=== PATIENT | female | born 1935 | race Caucasian/White ===

== ENCOUNTER 2016-10-09 19:46 | Emergency (ER) | payer MEDICARE, OTHER ==
[2016-10-09] MEDS ORDERED: LIDOCAINE 0.5%/EPINEPHRINE INJ 50 ML VIAL INJ ONE (20:52)
--- NOTE | 2016-10-09 20:54 | ER Document Report ---
ED Fall - General Chief Complaint: Fall with injury Stated Complaint: FALL/MOUTH PAIN Time Seen by Provider: 10/09/16 20:45 Notes: Patient is an 81-year-old female comes emergency department for chief complaint of fall, she states she tripped and she hit her face on pavement. She reports an abrasion and injury to her nose with slight bleeding from the nose, she also reports feeling like her to front teeth have been smashed in. She also has an abrasion on her left knee. She denies a headache, passing out, vomiting, visual changes, neck pain, focal numbness or weakness. She takes aspirin but no other anticoagulation. She is up-to-date on her tetanus. TRAVEL OUTSIDE OF THE [place] IN LAST 30 DAYS: No - Related data Allergies/Adverse Reactions: No Known Allergies Allergy (Unverified 06/06/15 13:05) Past Medical History - General Information source: Patient - Social History Smoking Status: Never Smoker Frequency of alcohol use: None Drug Abuse: None Lives with: Family Family History: Arthritis, CAD, DM, Hyperlipidemia, Hypertension, Malignancy, Thyroid Disfunction - Past Medical History Cardiac Medical History: Reports: Hx Hypercholesterolemia, Hx Hypertension Pulmonary Medical History: Reports: Hx Bronchitis, Hx Pneumonia Neurological Medical History: Reports: Hx Seizures - as a child Endocrine Medical History: Reports: Hx Diabetes Mellitus Type 2 Renal/ Medical History: Denies: Hx Peritoneal Dialysis Malignancy Medical History: Reports: Hx Skin Cancer GI Medical History: Reports: Hx Gastroesophageal Reflux Disease Musculoskeltal Medical History: Reports Hx Arthritis, Reports Hx Musculoskeletal Deformity, Reports Hx Musculoskeletal Trauma Past Surgical History: Reports: Hx Breast Surgery - bx bilaterally neg, Hx Orthopedic Surgery - bilateral knee replacements, Hx Tonsillectomy - Immunizations Immunizations up to date: Yes Hx Diphtheria, Pertussis, Tetanus Vaccination: Yes Review of Systems - Review of Systems Constitutional: No symptoms reported EENT: See HPI Cardiovascular: No symptoms reported Respiratory: No symptoms reported Gastrointestinal: No symptoms reported Genitourinary: No symptoms reported Female Genitourinary: No symptoms reported Musculoskeletal: No symptoms reported Skin: See HPI Hematologic/Lymphatic: No symptoms reported Neurological/Psychological: See HPI Physical Exam - Vital signs Vitals: Temp Pulse Resp BP Pulse Ox 98.4 F 88 16 182/100 H 96 10/09/16 20:05 10/09/16 20:05 10/09/16 20:05 10/09/16 20:05 10/09/16 20:05 Interpretation: Normal - General General appearance: Appears well, Alert In distress: None - HEENT Head: Normocephalic, Atraumatic Eyes: Normal Conjunctiva: Normal Extraocular movements intact: Yes Eyelashes: Normal Pupils: PERRL Ears: Normal External canal: Normal Tympanic membrane: Normal Sinus: Normal Nasal: Other - There is a small bruise over the nasal bridge, there is dried epistaxis at the exit of the right nasal passage with a tiny superficial laceration which has already approximated and is difficult to pull apart. There is no septal hematoma. No other abnormality noted. Mouth/Lips: Other - 2 small 0.5 cm lacerations on the underneath aspect of the upper lip Mucous membranes: Normal Teeth diagram: 1 - Minimal posterior displacement, no impaction, no bleeding, no other abnormality noted of the teeth or gingiva Pharynx: Normal Neck: Normal - Respiratory Respiratory status: No respiratory distress Chest status: Nontender Breath sounds: Normal Chest palpation: Normal - Cardiovascular Rhythm: Regular Heart sounds: Normal auscultation Murmur: No - Abdominal Inspection: Normal Distension: No distension Bowel sounds: Normal Tenderness: Nontender Organomegaly: No organomegaly - Back Back: Normal, Nontender - Extremities General upper extremity: Normal inspection, Nontender, Normal color, Normal ROM , Normal temperature General lower extremity: Normal inspection, Nontender, Normal color, Normal ROM , Normal temperature, Normal weight bearing. No: Luciana's sign - Neurological Neuro grossly intact: Yes Cognition: Normal Orientation: AAOx4 [place] Coma Scale Eye Opening: Spontaneous [place] Coma Scale Verbal: Oriented [place] Coma Scale Motor: Obeys Commands Christine Coma Scale Total: 15 Speech: Normal Motor strength normal: LUE, RUE, LLE, RLE Sensory: Normal - Psychological Associated symptoms: Normal affect, Normal mood - Skin Skin Temperature: Warm Skin Moisture: Dry Skin Color: Normal Course - Re-evaluation Re-evalutation: Patient is not on a blood thinner, she is alert and well-appearing, no concerning neurological symptoms reported, neurological exam is normal, no headache. Patient is very youthful in appearance. She declines any pain medication Patient with a dried epistaxis which has resolved. No posterior pharynx bleeding. 2 small lacerations underneath the upper lip which were repaired, patient with minimal displacement of the front 2 teeth with no impaction into the gum or bleeding of the gum, no concerning acute abnormalities. Imaging of the face and knee show no acute abnormalities. Discussed with patient and sister in detail, we also discussed head injury precautions although no significant injury is noted. They state understanding and agreement. - Vital Signs Vital signs: Temp Pulse Resp BP Pulse Ox 98.0 F 81 18 177/86 H 97 10/09/16 22:39 10/09/16 22:39 10/09/16 22:39 10/09/16 22:39 10/09/16 22:39 Procedures - Laceration/Wound Repair inner upper lip #1 Wound length (cm): 0.5 Wound's Depth, Shape: Irregular Laceration pre-procedure: Sterile PPE donned, Sterile drapes applied, Shur- Clens applied Anesthetic type: 1% Lidocaine Volume Anesthetic (mLs): 1 Wound explored: Clean, No foreign body removed Irrigated w/ Saline (mLs): 20 Wound Repaired With: Sutures Suture Size/Type: 5:0, Vicryl Number of Sutures: 2 Layer Closure?: No Post-procedure NV exam normal: Yes Complications: No inner upper lip #2 Wound length (cm): 0.5 Wound's Depth, Shape: Irregular Laceration pre-procedure: Sterile PPE donned, Sterile drapes applied, Shur- Clens applied Anesthetic type: 1% Lidocaine Volume Anesthetic (mLs): 1 Wound explored: Clean, No foreign body removed Irrigated w/ Saline (mLs): 20 Wound Repaired With: Sutures Suture Size/Type: 5:0, Vicryl Number of Sutures: 2 Layer Closure?: No Post-procedure NV exam normal: Yes Complications: No Discharge - Discharge Clinical Impression: Epistaxis Fall Qualifiers: Encounter type: initial encounter Qualified Code(s): W19.XXXA - Unspecified fall, initial encounter Lip laceration Qualifiers: Encounter type: initial encounter Qualified Code(s): S01.511A - Laceration without foreign body of lip, initial encounter Dental injury Qualifiers: Encounter type: initial encounter Qualified Code(s): S09.93XA - Unspecified injury of face, initial encounter Condition: Stable Disposition: HOME, SELF-CARE Additional Instructions: Imaging shows no fracture or new abnormality. Recommend placing ice on both your upper lip and your knee, take Tylenol for pain. The sutures should dissolve on their own. Follow-up closely with a dentist for evaluation and management of dental injury. I recommend topical antibiotic on a Q-tip to be placed in right nasal passage. Keep area clean. Follow head injury precautions as listed below. Return to emergency department for any concerning symptoms. Head Injury Precautions At this point, there is no evidence that your head injury is serious. Observation is necessary, however. Take only clear liquids for the first few hours, unless told otherwise by the doctor. If no pain medication was prescribed, you may take acetaminophen according to the directions on the bottle. Do not take any medication that may alter your level of alertness (unless you've discussed it with the doctor first) . Limit activity for the first 24 hours. Bed rest is best. During the first 24 hours, check to see approximately every two to three hours that the patient is easily arousable, responds normally, and can perform common tasks such as walking without difficulty. Contact your doctor or go to the hospital if any of the following things occur: Persistent vomiting, difficulty in arousing the patient, worsening or continued headache, or failure to improve as expected. Head injuries can cause symptoms that persist for a few days or even a few weeks. Forms: Elevated Blood Pressure Referrals: XIOMARA SANCHEZ, SOURCING INTERN-C [Primary Care Provider] - Follow up as needed
[2016-10-09] MEDS ORDERED: LIDOCAINE 1% INJ-PF (10 MG/ML) 30 ML SDV ONE (21:03)
--- NOTE | 2016-10-09 21:31 | RADIOLOGY REPORT (SQ) ---
EXAM DESCRIPTION: CT FACIAL AREA WITHOUT COMPLETED DATE/TIME: 10/09/2016 9:19 pm REASON FOR STUDY: fall on face COMPARISON: 07/07/2013 TECHNIQUE: Noncontrasted images through the facial bones and orbits windowed for bone and soft tissu e. Additional coronal and sagittal reconstructed images reviewed. All images stored on PACS. All CT scanners at this facility use dose modulation, iterative reconstruction, and/or weight based d osing when appropriate to reduce radiation dose to as low as reasonably achievable (ALARA). [facility]: Dose Right [facility]: CareDose [facility]: Dose Right [facility]: Teradose 4D [facility]: Smart Technologies RADIATION DOSE: Up-to-date CT equipment and radiation dose reduction techniques were employed. CTDIv ol: 30.4 mGy. DLP: 500 mGy-cm. mGy. LIMITATIONS: None. FINDINGS: FACIAL BONES: No fracture or bone lesion. ORBITS: Intact. No fracture. Symmetric intact globes and retroorbital soft tissues. PARANASAL SINUSES: Mild right maxillary and ethmoid sinus disease. No nasal polyps. Maxillary sinus outlets are patent. SOFT TISSUES: No mass or edema. INFERIOR BRAIN: Limited view. No acute findings. OTHER: No other significant finding. IMPRESSION: NO ACUTE FINDINGS. TECHNICAL DOCUMENTATION: JOB ID: [id number] Quality ID # [id number]: Final reports with documentation of one or more dose reduction techniques (e.g., Au tomated exposure control, adjustment of the mA and/or kV according to patient size, use of iterative reconstruction technique) 2010 [employer]- All Rights Reserved
--- NOTE | 2016-10-09 21:42 | RADIOLOGY REPORT (SQ) ---
EXAM DESCRIPTION: KNEE LEFT 4 VIEW COMPLETED DATE/TIME: 10/09/2016 9:27 pm REASON FOR STUDY: fall, pain COMPARISON: None. NUMBER OF VIEWS: Four views. TECHNIQUE: AP, lateral, and both oblique radiographic images acquired of the left knee. LIMITATIONS: None. FINDINGS: MINERALIZATION: Osteopenia. BONES: Total knee replacement. No acute fracture. JOINT: No effusion. SOFT TISSUES: No soft tissue swelling. No radio-opaque foreign body. OTHER: No other significant finding. IMPRESSION: No acute fracture. Total knee replacement. TECHNICAL DOCUMENTATION: JOB ID: [id number] [employer]- All Rights Reserved
[2016-10-09 22:41] VITALS: BP 177/86
== END 2016-10-09 22:39 | disposition home or self-care (01) ==
LOC: ER 19:46
PROC: 0CQ0XZZ Repair Upper Lip, External Approach (ICD-10-PCS; principal; 2016-10-09)
DX: S01.511A Laceration without foreign body of lip, initial encounter (principal); S01.21XA Laceration without foreign body of nose, initial encounter; S80.212A Abrasion, left knee, initial encounter; K08.89 Other specified disorders of teeth and supporting structures; W01.0XXA Fall on same level from slipping, tripping and stumbling without subsequent striking against object, initial encounter; Y93.H9 Activity, other involving exterior property and land maintenance, building and construction; Y92.007 Garden or yard of unspecified non-institutional (private) residence as the place of occurrence of the external cause; I10 Essential (primary) hypertension; E11.9 Type 2 diabetes mellitus without complications; Z79.82 Long term (current) use of aspirin
CPT/HCPCS: 40830; 99284; 73562; 70486; J3490

== ENCOUNTER 2017-02-20 08:38 | Day surgery (SDC) | payer MEDICARE, OTHER ==
[2017-01-31 11:42] LABS: HEMATOCRIT 44.8 % (36.0-47.0); HGB HCT DIFFERENCE 0.2; MEAN CORPUSCULAR HEMOGLOBIN 30.4 pg (27.0-33.4); MEAN CORPUSCULAR HGB CONC 33.5 g/dL (32.0-36.0); MEAN CORPUSCULAR VOLUME 91 fl (80-97); RED BLOOD COUNT 4.94 10^6/uL (3.72-5.28); RED CELL DISTRIBUTION WIDTH 13.7 % (11.5-14.0); WHITE BLOOD COUNT 5.8 10^3/uL (4.0-10.5)
[2017-01-31 11:45] LABS: PROTHROMBIN TIME 12.9 SEC (11.4-15.4)
[2017-01-31 11:46] LABS: PARTIAL THROMBOPLASTIN TIME 31.1 SEC (23.5-35.8)
[2017-01-31 12:03] LABS: ANION GAP 13 (5-19); BLOOD UREA NITROGEN 16 mg/dL (7-20); CALCIUM 10.2 mg/dL (8.4-10.2); CARBON DIOXIDE 29 mmol/L (22-30); CHLORIDE 101 mmol/L (98-107); GLUCOSE 111 mg/dL (75-110); POTASSIUM 5.4 mmol/L (3.6-5.0); SODIUM 142.9 mmol/L (137-145)
--- NOTE | 2017-01-31 23:55 | EKG REPORT ---
SEVERITY:- BORDERLINE ECG - SINUS BRADYCARDIA BORDERLINE LEFT AXIS DEVIATION BORDERLINE T ABNORMALITIES, ANTERIOR LEADS : Confirmed by: Roldan Jones 31-Jan-2017 23:54:46
[~2017-02-20 08:38] MED LIST: CEFAZOLIN 1 GM/D5W RTU 1 GM/50 ML RTUPB IV PRN; LACTATED RINGERS 1000 ML IV PRN; LIDOCAINE 1%/EPINEPHRINE INJ 20 ML VIAL ONE; POVIDONE-IODINE 5% OPH PREP SOLN 30 ML ONE; SODIUM BICARBONATE 8.4% INJ 50 MEQ/50 ML DISP.SYRIN ONE
[2017-02-20] MEDS ORDERED: MIDAZOLAM 2 MG/2 ML INJ ONE (10:24)
[2017-02-20] MEDS ORDERED: PROPOFOL INJ 200 MG/20 ML VIAL IV ONE ×2 (10:24→13:49)
[2017-02-20] MEDS ORDERED: PROMETHAZINE HCL INJ 25 MG/1 ML VIAL IV PRN ×2 (11:08)
[2017-02-20] MEDS ORDERED: DIPHENHYDRAMINE HCL 50 MG/ML VIAL IV PRN (11:08)
[2017-02-20] MEDS ORDERED: OXYCODONE-ACETAMINOPHEN 5-325 MG TABLET PO PRN ×2 (11:08)
[2017-02-20] MEDS ORDERED: MEPERIDINE HCL/PF INJ 25 MG/1 ML DISP.SYRIN IV PRN (11:08)
[2017-02-20] MEDS ORDERED: MORPHINE SULFATE 10 MG/ML INJ IV PRN (11:08)
[2017-02-20] MEDS ORDERED: FENTANYL CITRATE INJ/PF 100 MCG/2 ML AMPUL IV PRN ×3 (11:08)
--- NOTE | 2017-02-20 13:52 | Operative Report ---
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 POSTOPERATIVE DIAGNOSIS: Same OPERATION: Excision of basal cell carcinoma of the left tip of nose with frozen section margin control and reexcision of the base at the 3 to 6:00 including portions of the lower lateral cartilage with reconstruction with a full- thickness graft taken from the left clavicular area and reconstruction of the lower lateral cartilage and a subcutaneous advancement flap to cover exposed cartilage SURGEON: JAZMINE SEARS ANESTHESIA: LMAC TISSUE REMOVED OR ALTERED: Basal cell carcinoma COMPLICATIONS: None ESTIMATED BLOOD LOSS: 5 mL's PROCEDURE: The patient was brought into the operating room. The patient was laid on the operating room table in a supine position. The patient was prepped and draped in a sterile and aseptic fashion. After a timeout we then went ahead and marked the area on the left tip of nose to be resected. The 12:00 margin was towards the nasion. The 3:00 margin was towards the left side of the nose. The 6:00 margin was towards the tip of the nose. The 9:00 margin was towards the right side of the nose. Then went ahead and anesthetize the area with 1% lidocaine with epinephrine. Then went ahead and excise the area. Stitch was placed at 12:00 and it was sent for frozen section. Frozen section results came back that the lateral margins were clear. The deep margin had a small focus of basal cell carcinoma on the frozen section around the 3 to 6:00 area of the base. I discussed this with the pathologist and they recommended further resection. Unfortunately this was on the cartilage and perichondrium and a portion is would need to be resected. We went ahead and resected from the midline of the specimen to the 345 and 6:00 margins. We had to take some of the lower lateral cartilage on the shave in order to have tissue for the base for the pathologist. We started medially and worked our way laterally. At the lateral aspect there was still some perichondrium from the initial resection. This was sent for the evaluation by the pathologist. So the re-resection of the base included medial portions of lower lateral cartilage and laterally perichondrium. In order to reconstruct this area the cartilage was sutured with inverted 5-0 Vicryl sutures to try to realign the medial border and the lateral border of the lower lateral cartilage. In between the cartilages and along the lateral edge of the resection at the 3: 00 we developed an advanced a small subcutaneous flap towards the midline. From the medial portion we took the tissue that was between the lower lateral cartilages and dissected this and freed this up enough so that it can fold over the cartilage reconstruction meeting the flap from the lateral aspect at the 3: 00 which we had developed in the subcutaneous with a subcutaneous flap. This now gave us coverage using tissue from medially and laterally and bring it together in the central area to cover the exposed cartilage so that there will be enough vascularity for the skin graft. We irrigated the wound with Betadine sterile water to lyse any remaining cancer cells. We then went ahead and decided that because of the size of the defect we will proceed with a full thickness skin graft. Decided to harvest the graft from left clavicular area. We then went ahead and harvest the full-thickness graft. We closed the area with 4-0 Vicryl sutures and the skin was then closed with 3- 0 PDS with knots being tied on the outside and a support stitch in the center. At the end of the case tincture of benzoin and Steri-Strips were applied with a light pressure dressing. Graft was then defatted to the appropriate size and placed into the area of defect. It was then sutured into place with 5-0 Prolene sutures leaving one end long. After all the sutures were placed we then went ahead and applied Xeroform. Then went ahead and created a bolus dressing and tied each suture 180 from each other. Then tied the sutures again to each other. Bacitracin was applied. 2 x 2's were applied and tincture benzoin and the dressing was taped into place. At the end of the case the patient was doing well and brought to the [facility] for recovery The approximate size of the lesion was approximately 2.1 cm x 2 cm. This dictation was performed using Jounce naturally speaking. If there are any inconsistencies please contact the dictating surgeon. Subjective: No complaints Objective: Vital signs stable afebrile No bleeding Dressing intact Assessment and plan: Doing well. Elevate the operative site. Resume medications. Take antibiotics for 1 day Follow-up Full instructions were given to the patient and family and they understand Portions of this note may be dictated using [employer] voice recognition software. Occasional variations and spelling and vocabulary could be possible and are unintentional. Additionally, there is a chance that some errors may not be caught or corrected. Please notify the offer of any discrepancies noted or if any statements are unclear.
--- NOTE | 2017-02-20 13:54 | PDOC DISCHARGE SUMMARY ---
Discharge Summary (SDC) - Discharge Final Diagnosis: Basal cell carcinoma of the left hip and nose Date of Surgery: 02/20/17 Condition: Good Treatment or Instructions: Antibiotics for 1 day, then discontinue. Elevate operative area to decrease swelling. Do not strain, or lift heavy objects. Call for excessive bleeding, increased temperature of 101, uncontrolled pain, or excessive nausea or vomiting. You may reach Dr. Levi through his office at [phone]. In the event of an emergency after hours, then contact Dr. Levi through [facility]. Return to the office for a postop check on . The time will be scheduled by the nursing staff of [facility] prior to discharge. Please give the patient a copy of their labs and EKG so they can bring this to their PMD. Thank you Portions of this note may be dictated using [employer] voice recognition software. Occasional variations and spelling and vocabulary could be possible and are unintentional. Additionally, there is a chance that some errors may not be caught or corrected. Please notify the offer of any discrepancies noted or if any statements are unclear. Referrals: XIOMARA SANCHEZ, CULTURIST-C [Primary Care Provider] - Discharge Diet: As Tolerated Report the Following to Your Physician Immediately: Unusual Bleeding - Keep head elevated. No bending or straining. Do not touch the nasal dressing.
[2017-02-20 15:56] VITALS: BP 172/88
== END 2017-02-20 16:00 | disposition home or self-care (01) ==
LOC: OROUT 08:38
PROVIDERS: ATTEND Plastic Surgery
PROC: 0HR1X73 Replacement of Face Skin with Autologous Tissue Substitute, Full Thickness, External Approach (ICD-10-PCS; principal; 2017-02-20 10:30)
DX: C44.311 Basal cell carcinoma of skin of nose (principal); I10 Essential (primary) hypertension; M19.90 Unspecified osteoarthritis, unspecified site; E11.9 Type 2 diabetes mellitus without complications; Z79.01 Long term (current) use of anticoagulants; Z79.82 Long term (current) use of aspirin; Z79.899 Other long term (current) drug therapy
CPT/HCPCS: 93005; 36415 ×2; 82962; 84132; 85027; 85610; 85730; 80048; 88305 ×2; 88331 ×2; 93010; 11646; 15260; J2250; J0690; J3490 ×3; J2704; 300

== ENCOUNTER → 2017-04-10 | Outpatient (CLI) | payer MEDICARE, OTHER ==
--- NOTE | 2017-04-10 14:35 | RADIOLOGY REPORT (SQ) ---
EXAM DESCRIPTION: HIP RIGHT AP/LATERAL; L SPINE WHOLE COMPLETED DATE/TIME: 04/10/2017 1:21 pm REASON FOR STUDY: RIGHT HIP PAIN (M25.551); LOW BACK PAIN (M54.5) COMPARISON: None. FINDINGS: Five views lumbar spine including obliques: Osteopenic. Grade 1 L4-5 anterolisthesis. D isc space narrowing, most pronounced at L4-5 and L5-S1. Multilevel facet degenerative overgrowth wit hout suggestion of pars defect. No fracture or worrisome bone lesion. Lower thoracic spondylosis as well. Degenerative sclerosis along the iliac side of the left SI joint. No suggestion of sacral fr acture. Two views right hip: AP pelvis and frog lateral hip. Osteopenic. Moderate to marked right hip joint space narrowing, asymmetric compared to the left hip. Associated sclerosis and degenerative spurrin g. No fracture or bone lesion in the pelvis. IMPRESSION: 1. Osteopenia. 2. Lumbar spondylosis. No fracture. 3. Right hip degenerative disease. No fracture. TECHNICAL DOCUMENTATION: JOB ID: [id number]
== END ==
LOC: RAD 12:22
PROVIDERS: ATTEND Physician Assistant
DX: M16.11 Unilateral primary osteoarthritis, right hip (principal); M25.551 Pain in right hip; M47.896 Other spondylosis, lumbar region; M54.5 Low back pain; C50.412 Malignant neoplasm of upper-outer quadrant of left female breast
CPT/HCPCS: 72110

== ENCOUNTER → 2017-04-13 | Outpatient (CLI) | payer MEDICARE, OTHER ==
--- NOTE | 2017-04-13 16:33 | RADIOLOGY REPORT (SQ) ---
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 RADIONUCLIDE AND DOSE: 20.2 millicuries Tc99m MDP. The route of agent administration: Intravenous. ADDITIONAL DRUGS AND DOSES: None. TECHNIQUE: Routine delayed images at 3 hour post radionuclide injection acquired of the bony skeleto n including anterior and posterior whole-body projections and additional focused images as needed. LIMITATIONS: None. FINDINGS: BONES: Scattered focal areas of activity throughout the cervical, thoracic, and lumbar spi ne. Focal activity in the wrist and fingers of both hands, incompletely imaged. Photopenia in the k nees secondary to knee prostheses. Focal activity in the right hip. No other areas of unusual bony activity. KIDNEYS: Symmetric excretion without obstruction. OTHER: No other significant finding. IMPRESSION: 1. ACTIVITY IN THE RIGHT HIP WHICH CORRESPONDS WITH DEGENERATIVE CHANGE SEEN ON RECENT X-RAY. 2. SCATTERED AREAS OF ACTIVITY THROUGHOUT THE SPINE MOST CONSISTENT WITH DEGENERATIVE CHANGES. 3. AREAS OF ACTIVITY IN THE WRIST AND FINGERS OF BOTH HANDS, INCOMPLETELY IMAGED, BUT MOST LIKELY DUE TO DEGENERATIVE ARTHRITIS. 4. OTHERWISE NO UNUSUAL ACTIVITY IN THE SKELETON. NO FINDINGS CONCERNING FOR METASTASES. COMMENT: Quality measure 147: Current bone scan is compared with any available plain radiographs, p rior bone scans, and CT/MRI. TECHNICAL DOCUMENTATION: JOB ID: [id number] [employer]- All Rights Reserved
== END ==
LOC: RAD 10:51
PROVIDERS: ATTEND Physician Assistant
DX: C50.412 Malignant neoplasm of upper-outer quadrant of left female breast (principal)
CPT/HCPCS: 78306; A9561; Q9969

== ENCOUNTER → 2017-04-23 | Outpatient (CLI) | payer MEDICARE, OTHER ==
--- NOTE | 2017-04-23 12:51 | RADIOLOGY REPORT (SQ) ---
EXAM DESCRIPTION: CAROTID DOPPLER COMPLETED DATE/TIME: 04/23/2017 12:02 pm REASON FOR STUDY: BRUIT R09.89 OTH SYMPTOMS AND SIGNS INVOLVING THE CIRC AND RESP SY COMPARISON: None. TECHNIQUE: Grayscale ultrasound, Doppler velocity and spectra, and color Doppler images acquired of the extra-cranial carotid and vertebral arteries. Images stored on PACS. LIMITATIONS: None. FINDINGS: RIGHT CAROTID CCA Velocities: Within normal limits. ICA Velocities Peak systolic 0.55 m/s. End diastolic 0.19 m/s. Proximal ICA/CCA peak systolic ratio 1.9. Spectra normal. No significant plaque. LEFT CAROTID CCA Velocities: Within normal limits. ICA Velocities Peak systolic 0.70 m/s. End diastolic 0.20 m/s. Proximal ICA/CCA peak systolic ratio 1.2. Spectra normal. No significant plaque. VERTEBRAL ARTERIES: Antegrade flow. Normal waveforms. SUBCLAVIAN ARTERIES: Not evaluated OTHER: No other significant finding. IMPRESSION: NO HEMODYNAMICALLY SIGNIFICANT STENOSIS. COMMENT: Quality ID #[id number]: Velocity criteria are extrapolated from the diameter data as defined by t he Society of Radiologists in Ultrasound Consensus Conference. Radiology 2003: 229; 340-346. TECHNICAL DOCUMENTATION: JOB ID: [id number] [employer]- All Rights Reserved
== END ==
LOC: SP 10:52
PROVIDERS: ATTEND Hospitalist
DX: R09.89 Other specified symptoms and signs involving the circulatory and respiratory systems (principal)
CPT/HCPCS: 93880

== ENCOUNTER → 2018-02-22 | Outpatient (CLI) | payer MEDICARE, OTHER ==
--- NOTE | 2018-02-22 09:29 | WOMENS IMAGING REPORT ---
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 LIMITATIONS: None. FINDINGS: LUMBAR SPINE: The bone mineral density (BMD) measured from L1-L4 in the AP projection correlates with a T-score of 0.0, which is normal as defined by the World Health Organization. 5.7% increase as compared to the p revious study HIP: The bone mineral density (BMD) measured in the left hip correlates with a T-score of -1.4, which is o steopenia as defined by the World Health Organization. 4.1% increase as compared to the previous julián dy IMPRESSION: 1. LUMBAR SPINE: Normal 2. HIP: Osteopenia COMMENT: The World Health Organization defines low BMD as follows: T-score: Normal: Greater than -1.0 Osteopenia: Between -1.0 and -2.5 Osteoporosis: Less than -2.5 without fractures Established osteoporosis: Less than -2.5 with fractures In general, you may wish to consider: Diagnosis Treatment Follow-up DEXA Normal BMD Prevention 2-3 years Osteopenia Prevention/Therapy 1-2 years Osteoporosis Therapy Yearly TECHNICAL DOCUMENTATION: JOB ID: [id number] [employer]- All Rights Reserved Reading location - IP/workstation name: [email or web address]
== END ==
LOC: WI 08:10
PROVIDERS: ATTEND Internal Medicine
DX: M81.0 Age-related osteoporosis without current pathological fracture (principal)
CPT/HCPCS: 77080

== ENCOUNTER → 2018-10-10 | Outpatient (CLI) | payer MEDICARE, OTHER ==
--- NOTE | 2018-10-10 10:57 | RADIOLOGY REPORT (SQ) ---
EXAM DESCRIPTION: CHEST PA/LATERAL COMPLETED DATE/TIME: 10/10/2018 10:49 am REASON FOR STUDY: PREOP COMPARISON: None. EXAM PARAMETERS: NUMBER OF VIEWS: two views TECHNIQUE: Digital Frontal and Lateral radiographic views of the chest acquired. RADIATION DOSE: NA LIMITATIONS: none FINDINGS: LUNGS AND PLEURA: No opacities, masses or pneumothorax. No pleural effusion. MEDIASTINUM AND HILAR STRUCTURES: No masses or contour abnormalities. HEART AND VASCULAR STRUCTURES: Heart normal size. No evidence for failure. BONES: No acute findings. Degenerative changes in the spine HARDWARE: Surgical clips in the soft tissues on the left. OTHER: No other significant finding. IMPRESSION: NO SIGNIFICANT RADIOGRAPHIC FINDING IN THE CHEST. TECHNICAL DOCUMENTATION: JOB ID: [id number] [employer]- All Rights Reserved Reading location - IP/workstation name: [email or web address]
[2018-10-10 11:33] LABS: HEMATOCRIT 43.2 % (36.0-47.0); HEMOGLOBIN 14.5 g/dL (12.0-15.5); MEAN CORPUSCULAR HEMOGLOBIN 30.1 pg (27.0-33.4); MEAN CORPUSCULAR HGB CONC 33.6 g/dL (32.0-36.0); MEAN CORPUSCULAR VOLUME 90 fl (80-97); PLATELET COUNT 186 10^3/uL (150-450); RED BLOOD COUNT 4.81 10^6/uL (3.72-5.28); RED CELL DISTRIBUTION WIDTH 13.9 % (11.5-14.0); WHITE BLOOD COUNT 5.2 10^3/uL (4.0-10.5)
[2018-10-10 11:55] LABS: ANION GAP 9 (5-19); BLOOD UREA NITROGEN 18 mg/dL (7-20); CALCIUM 9.9 mg/dL (8.4-10.2); CARBON DIOXIDE 28 mmol/L (22-30); CHLORIDE 102 mmol/L (98-107); GLUCOSE 156 mg/dL (75-110); POTASSIUM 5.6 mmol/L (3.6-5.0)
--- NOTE | 2018-10-10 20:32 | EKG REPORT ---
SEVERITY:- ABNORMAL ECG - SINUS RHYTHM LEFT ANTERIOR FASCICULAR BLOCK CONSIDER LEFT VENTRICULAR HYPERTROPHY : Confirmed by: Roldan Jones 10-Oct-2018 20:31:38
== END ==
LOC: OD 10:07
PROVIDERS: ATTEND Surgery
DX: Z01.818 Encounter for other preprocedural examination (principal); K40.90 Unilateral inguinal hernia, without obstruction or gangrene, not specified as recurrent; Z85.3 Personal history of malignant neoplasm of breast; I10 Essential (primary) hypertension; E11.9 Type 2 diabetes mellitus without complications; Z85.828 Personal history of other malignant neoplasm of skin; M25.50 Pain in unspecified joint
CPT/HCPCS: 36415; 71046; 80048; 85027; 93005; 93010

== ENCOUNTER 2018-10-21 11:55 | Day surgery (SDC) | payer MEDICARE, OTHER ==
[~2018-10-21 11:55] MED LIST changes: +ACETAMINOPHEN 325 MG TABLET ONE; +ACETAMINOPHEN 325 MG TABLET PO PRN; +BUPIVACAINE HCL 0.25 % INJ/PF (2.5 MG/1 ML) 30 ML VIAL ONE; -CEFAZOLIN 1 GM/D5W RTU 1 GM/50 ML RTUPB IV PRN; +CEFAZOLIN SODIUM 2 GM in DEXTROSE 5%-WATER 100 ML IV PRN; +IBUPROFEN 800 MG in NORMAL SALINE 250 ML IV PRN; +LIDOCAINE 0.5% INJ-PF (5 MG/ML) 50 ML SDV SUBCUT PRN; -LIDOCAINE 1%/EPINEPHRINE INJ 20 ML VIAL ONE; -POVIDONE-IODINE 5% OPH PREP SOLN 30 ML ONE; -SODIUM BICARBONATE 8.4% INJ 50 MEQ/50 ML DISP.SYRIN ONE
[2018-10-21] MEDS ORDERED: SUGAMMADEX SODIUM 200 MG/2 ML SDV IV ONE (12:59)
[2018-10-21] MEDS ORDERED: MIDAZOLAM 2 MG/2 ML INJ ONE (12:59)
[2018-10-21] MEDS ORDERED: FENTANYL CITRATE INJ/PF 100 MCG/2 ML AMPUL ONE (12:59)
[2018-10-21] MEDS ORDERED: ONDANSETRON HCL INJ/PF 4 MG/2 ML SDV ONE (12:59)
[2018-10-21] MEDS ORDERED: DEXAMETHASONE SOD PHOSPHATE INJ 4 MG/1 ML VIAL ONE (12:59)
[2018-10-21] MEDS ORDERED: PROPOFOL INJ 200 MG/20 ML VIAL IV ONE (13:00)
[2018-10-21] MEDS ORDERED: EPHEDRINE SULFATE INJ 50 MG/1 ML AMPULE ONE (13:06)
[2018-10-21] MEDS ORDERED: GLYCOPYRROLATE 1 MG/5 ML VIAL ONE (14:20)
[2018-10-21] MEDS ORDERED: FENTANYL CITRATE INJ/PF 100 MCG/2 ML AMPUL IV PRN ×3 (14:54)
[2018-10-21] MEDS ORDERED: PROMETHAZINE HCL INJ 25 MG/1 ML VIAL IV PRN ×2 (14:54)
[2018-10-21] MEDS ORDERED: MEPERIDINE HCL/PF INJ 25 MG/1 ML DISP.SYRIN IV PRN (14:54)
[2018-10-21] MEDS ORDERED: DIPHENHYDRAMINE HCL 50 MG/ML VIAL IV PRN (14:54)
[2018-10-21] MEDS ORDERED: MORPHINE SULFATE 10 MG/ML INJ IV PRN (14:54)
[2018-10-21] MEDS ORDERED: ONDANSETRON HCL INJ/PF 4 MG/2 ML SDV IV PRN (14:54)
[2018-10-21] MEDS: FENTANYL CITRATE INJ/PF 100 MCG/2 ML AMPUL ONE ×2 (16:05→16:10)
[2018-10-21] MEDS ORDERED: HYDROCODONE/ACETAMINOPHEN 10-325 MG TABLET PO PRN (16:21)
--- NOTE | 2018-10-21 16:29 | Discharge Summary ---
Discharge Summary (SDC) - Discharge Final Diagnosis: Right inguinal hernia, symptomatic Date of Surgery: 10/21/18 Discharge Date: 10/21/18 Condition: Stable Treatment or Instructions: d/c home. Diet as tolerated. Activity: no lifting >10 lbs x 6 weeks. Followup with me in 7-10 days. Hector 10/325 mg PO q6 hrs PRN pain. Ibuprofen 800mg PO TID with meals. ok to shower in 48 hrs. No tub baths or swimming pools x 2 weeks. Referrals: XIOMARA SANCHEZ, OXYACETYLENE WELDER-C [Primary Care Provider] - Discharge Diet: As Tolerated Respiratory Treatments at Home: Deep Breathing/Coughing, Incentive Spirometer Discharge Activity: No Lifting Over 10 Pounds, No Lifting/Push/Pulling Home Care Assistance: None Needed Report the Following to Your Physician Immediately: Shortness of Breath, Nausea, Vomiting, Increase in Pain, Fever over 101 Degrees, Unusual Bleeding, Redness, Swelling, Warmth, Increased Soreness
--- NOTE | 2018-10-21 16:36 | Operative Report ---
Nonrecallable Operative Report DATE OF SURGERY: 10/21/18 PREOPERATIVE DIAGNOSIS: Symptomatic right inguinal hernia. POSTOPERATIVE DIAGNOSIS: Same as above. OPERATION: Robot-assisted laparoscopic right inguinal hernia repair with mesh. SURGEON: LEXIE MENENDEZ ANESTHESIA: GA TISSUE REMOVED OR ALTERED: None COMPLICATIONS: None apparent ESTIMATED BLOOD LOSS: Minimal PROCEDURE: Drains/implants: Right-sided 3 DMax inguinal hernia mesh. Procedure in detail: After informed consent was obtained, the patient was brought into the operating room and laid in the supine position. The area of the abdomen was prepped and draped in a normal sterile fashion. A supraumbilical incision was created with a 15 blade scalpel. Dissection was carried through the subcutaneous tissue using sharp and blunt dissection. The linea alba fascia was incised sharply, the abdomen was entered sharply. The balloon trocar was inserted, and pneumoperitoneum was achieved. 2 right and left 8 mm robotic trochars were then placed under direct laparoscopic visualization. The robot was then brought over the patient and docked appropriately. I then assumed my position at the surgeon's console. Attention was turned to the right inguinal hernia. A preperitoneal dissection was undertaken. The peritoneum was scored 3 cm superior to the defect. The preperitoneal dissection was undertaken using sharp and blunt dissection, as well as electrocautery. This was done with great care, so as not to injure the neurovascular structures. The hernia sac was reduced. The hernia defect appeared to be in the indirect position, with a small femoral component. A large right-sided 3 DMax inguinal hernia mesh was then chosen to cover the defe ct. It was placed into the preperitoneal space, and situated over the defect. It was sutured to the anterior abdominal wall using 2-0 Vicryl suture in simple interrupted fashion. This was done medially and superiorly. The peritoneum was then closed using 2-0 VLock suture in simple running fashion. Once this was completed, the robot was undocked, and I scrubbed back into the case. The 8 mm trochars were removed. The 8 mm defects were closed using 0 Vicryl suture in simple interrupted fashion with the aid of the Marvel-Jeevan device. The 12 mm trocar was removed, and pneumoperitoneum was relieved. The supraumbilical fascia was closed using 0 Vicryl suture in [id number] fashion. The overlying skin was closed using 4-0 Vicryl Rapide suture in subcuticular fashion. Dressings were placed, and the procedure was concluded. All sponge, instrument, and needle counts were correct x2. Condition: Stable.
[2018-10-21] MEDS ORDERED: HYDROCODONE/ACETAMINOPHEN 10-325 MG TABLET ONE (16:43)
[2018-10-21 18:05] VITALS: BP 150/104
== END 2018-10-21 18:15 | disposition home or self-care (01) ==
LOC: OROUT 11:55
PROVIDERS: ATTEND Surgery
DX: K40.90 Unilateral inguinal hernia, without obstruction or gangrene, not specified as recurrent (principal); E11.9 Type 2 diabetes mellitus without complications; Z85.828 Personal history of other malignant neoplasm of skin; Z79.82 Long term (current) use of aspirin; Z79.899 Other long term (current) drug therapy; I10 Essential (primary) hypertension
CPT/HCPCS: 49650; S2900; 36415; 82962; 840; 84132; 86850; 86900; 86901; C1781; J0690; J1100; J1741; J2250; J2405; J2704; J3010; J3490; J7050; J7060

== ENCOUNTER 2019-02-04 06:05 | Day surgery (SDC) | payer MEDICARE, OTHER ==
[2019-01-21 11:45] LABS: HEMATOCRIT 43.2 % (36.0-47.0); HEMOGLOBIN 14.5 g/dL (12.0-15.5); MEAN CORPUSCULAR HEMOGLOBIN 30.1 pg (27.0-33.4); MEAN CORPUSCULAR HGB CONC 33.6 g/dL (32.0-36.0); MEAN CORPUSCULAR VOLUME 90 fl (80-97); PLATELET COUNT 239 10^3/uL (150-450); RED BLOOD COUNT 4.83 10^6/uL (3.72-5.28); RED CELL DISTRIBUTION WIDTH 13.9 % (11.5-14.0); WHITE BLOOD COUNT 4.8 10^3/uL (4.0-10.5)
[2019-01-21 11:53] LABS: INTERNATIONAL RATION (INR) 1.04; PROTHROMBIN TIME 13.6 SEC (11.4-15.4)
[2019-01-21 11:54] LABS: PARTIAL THROMBOPLASTIN TIME 30.2 SEC (23.5-35.8)
[2019-01-21 12:08] LABS: ANION GAP 10 (5-19); BLOOD UREA NITROGEN 16 mg/dL (7-20); CALCIUM 9.9 mg/dL (8.4-10.2); CARBON DIOXIDE 26 mmol/L (22-30); CHLORIDE 103 mmol/L (98-107); GLUCOSE 125 mg/dL (75-110); POTASSIUM 4.4 mmol/L (3.6-5.0)
--- NOTE | 2019-01-22 23:38 | EKG REPORT ---
SEVERITY:- OTHERWISE NORMAL ECG - SINUS RHYTHM LEFT AXIS DEVIATION : Confirmed by: Roldan Jones 22-Jan-2019 23:37:51
[~2019-02-04 06:05] MED LIST changes: -ACETAMINOPHEN 325 MG TABLET ONE; -ACETAMINOPHEN 325 MG TABLET PO PRN; -BUPIVACAINE HCL 0.25 % INJ/PF (2.5 MG/1 ML) 30 ML VIAL ONE; +CEFAZOLIN SODIUM 1 GM in DEXTROSE 5%-WATER 50 ML IV SCH; -CEFAZOLIN SODIUM 2 GM in DEXTROSE 5%-WATER 100 ML IV PRN; -IBUPROFEN 800 MG in NORMAL SALINE 250 ML IV PRN
[2019-02-04] MEDS ORDERED: KETAMINE HCL INJ 500 MG/10 ML VIAL ONE (07:07)
[2019-02-04] MEDS ORDERED: PROPOFOL INJ 200 MG/20 ML VIAL IV ONE (07:08)
[2019-02-04] MEDS ORDERED: MIDAZOLAM 2 MG/2 ML INJ ONE (07:08)
[2019-02-04] MEDS ORDERED: FENTANYL CITRATE INJ/PF 100 MCG/2 ML AMPUL ONE (07:08)
[2019-02-04] MEDS ORDERED: SODIUM BICARBONATE 4.2% INJ (2.5 MEQ/5 ML) VIAL ONE (07:36)
[2019-02-04] MEDS ORDERED: LIDOCAINE 1%/EPINEPHRINE INJ 20 ML VIAL ONE (07:36)
[2019-02-04] MEDS ORDERED: POVIDONE-IODINE 5% OPH PREP SOLN 30 ML ONE (07:36)
[2019-02-04] MEDS ORDERED: MORPHINE SULFATE 10 MG/ML INJ IV PRN (08:24)
[2019-02-04] MEDS ORDERED: PROMETHAZINE HCL INJ 25 MG/1 ML VIAL IV PRN (08:24)
[2019-02-04] MEDS ORDERED: MEPERIDINE HCL/PF INJ 25 MG/1 ML DISP.SYRIN IV PRN (08:24)
[2019-02-04] MEDS ORDERED: DIPHENHYDRAMINE HCL 50 MG/ML VIAL IV PRN (08:24)
[2019-02-04] MEDS ORDERED: FENTANYL CITRATE INJ/PF 100 MCG/2 ML AMPUL IV PRN ×3 (08:24)
--- NOTE | 2019-02-04 10:12 | Operative Report ---
Operative Report DATE OF SURGERY: 02/04/19 PREOPERATIVE DIAGNOSIS: Suspected basal cell carcinoma of the midline forehead. Small adjacent suspicious lesion. POSTOPERATIVE DIAGNOSIS: Same OPERATION: Excision of basal cell carcinoma from the midline forehead with frozen section margin control which came back deep and lateral margins are clear. There was a another adjacent area that was resected and after discussing with Dr. Schuler because of its size she wanted to be sent as a permanent section not a frozen section. We sent this as a permanent section but it was involved with the reconstruction. Reconstruction was with a forehead sliding advancement flap reconstruction. SURGEON: JAZMINE SEARS ANESTHESIA: LMAC TISSUE REMOVED OR ALTERED: Basal cell carcinoma. Additional adjacent suspicious lesion. COMPLICATIONS: None ESTIMATED BLOOD LOSS: Minimal PROCEDURE: Patient seen and was marked prior to being brought into the operating room. Patient was brought into the operating room and placed on the operating room table in a [supine] position. Patient was then prepped with a Betadine scrub and Betadine solution and draped in a sterile and aseptic manner. The area was then marked. 12 O'clock was marked towards the hairline 3 O'clock was marked towards the left side 6:00 was marked towards the glabella 9:00 was marked towards the right side The area was then anesthetized with 1% lidocaine with epinephrine and bicarbonate for its anesthetic and hemostatic effects. The area was then excised and marked at 12:00. The specimen was sent for frozen section. The results came back that the deep and lateral margins were free. There was another adjacent area it appeared to be a scar and it was felt that this was going to be involved at the margin of the reconstruction so we decided to resect this. I requested a frozen section because this is going to be part of the reconstructive area however Dr. Schuler said because of the size its best to be treated under permanent section. Unfortunately I would not be able to get clearance completely with the second specimen to make sure that all the margins were free of any carcinoma other than from the initial primary area that was resected. We had considered a primary closure but this would go against the natural relax ed skin tension lines. A primary closure would be too tight and would have increased chance of dehiscence. This will leave more of a scar so we decided to use a forehead sliding advancement flap reconstruction which would camouflage the scar better and take tension off of the closure so that would be less chances of complications. We had spent a considerable period of time deciding what was going to be the best reconstruction once we had the second area that had to be resected. This would make it very difficult to do any type of horizontal closure because now the size of the defect was approaching 2.[address] to close this would be in a more horizontal directed direction. We had to use a slightly diagonal kind of reconstruction to make up for the other area of defect adjacent to the primary cancer resection defect. This gave us a slight tilt to the reconstruction. We had spent time judging the amount of elevation of the patient's brows with the closure and it was felt that this elevation would give her a brow lift. It was also felt that this would not affect her eyelids in terms of closure. Actually it would take some of the excess skin out of the eyelid. This would not all jeopardize her ease of closure of her eyelids. Patient was awake during the procedure so we were able to test her and make sure that she felt no pressure on the closure of her eyelid. Doing anything with a vertical component again would have been too tight especially with the size of the defect. Then we went ahead and outlined the flap and anesthetized it. We then incised the flap and developed a flap maintaining the subdermal plexus. Then we undermined 360 to allow for plate like scarring and minimize trap door deformity. Throughout the case hemostasis was achieved with the bipolar. We then sutured the flap into its new position using 5-0 Vicryl for the subcutaneous and deep dermis. Skin was closed with a [running subcuticular suture] stitch using [4-0 PDS] with knots being tied on the outside. And 5-0 Prolene suture was used for support and placed in the central area of the incision. We then applied Dermabond followed by a light pressure dressing. Patient was then reversed from anesthesia and taken to the [facility] for recovery. The patient tolerated well. There were no complications. Lesion size was initial lesion was approximately 1.5 x 1.5 with the additional resection total size was 2.5 cm please see pathology for actual size. Portions of this note may be dictated using [employer] voice recognition software. Occasional variations and spelling and vocabulary could be possible and are unintentional. Additionally, there is a chance that some errors may not be caught or corrected. Please notify the author of any discrepancies noted or if any statements are unclear. Subjective: No complaints Objective: Vital signs stable afebrile No bleeding Dressing intact Assessment and plan: Doing well. Elevate the operative site. Resume medications. Take antibiotics for 1 day Follow-up Full instructions were given to the patient and family and they understand Portions of this note may be dictated using [employer] voice recognition software. Occasional variations and spelling and vocabulary could be possible and are unintentional. Additionally, there is a chance that some errors may not be caught or corrected. Please notify the offer of any discrepancies noted or if any statements are unclear.
--- NOTE | 2019-02-04 10:13 | Discharge Summary ---
Discharge Summary (SDC) - Discharge Final Diagnosis: Basal cell carcinoma of the forehead with adjacent lesion. Date of Surgery: 02/04/19 Condition: Good Treatment or Instructions: Antibiotics for 1 day, then discontinue. Elevate operative area to decrease swelling. Do not strain, or lift heavy objects. Call for excessive bleeding, increased temperature of 101, uncontrolled pain, or excessive nausea or vomiting. You may reach Dr. Levi through his office at [phone]. In the event of an emergency after hours, then contact Dr. Levi through [facility]. Return to the office for a postop check on . The time will be scheduled by the nursing staff of [facility] prior to discharge. Please give the patient a copy of their labs and EKG so they can bring this to their PMD. Thank you Portions of this note may be dictated using [employer] voice recognition software. Occasional variations and spelling and vocabulary could be possible and are unintentional. Additionally, there is a chance that some errors may not be caught or corrected. Please notify the offer of any discrepancies noted or if any statements are unclear. Referrals: VILMA AVINA MD [Primary Care Provider] - Discharge Diet: As Tolerated Discharge Activity: No Lifting/Push/Pulling Report the Following to Your Physician Immediately: Unusual Bleeding - Keep head elevated. No bending or straining.
[2019-02-04] MEDS ORDERED: BALANCED SALT IRRIG SOLN COMB2 15 ML BOTTLE OU PRN (10:21)
[2019-02-04 13:38] VITALS: BP 191/97
== END 2019-02-04 11:25 | disposition home or self-care (01) ==
LOC: OROUT 06:05
PROVIDERS: ATTEND Plastic Surgery
DX: C44.319 Basal cell carcinoma of skin of other parts of face (principal); I10 Essential (primary) hypertension; E11.9 Type 2 diabetes mellitus without complications; Z85.3 Personal history of malignant neoplasm of breast; Z79.899 Other long term (current) drug therapy; Z79.01 Long term (current) use of anticoagulants; Z79.82 Long term (current) use of aspirin
CPT/HCPCS: 93005; 36415; 82962; 85027; 85610; 85730; 80048; 88305 ×2; 88331 ×2; 93010; 14040; J3490 ×5; J0690; J7060; J2704; 300; J2250; J3010

== ENCOUNTER → 2019-02-25 | Outpatient (CLI) | payer MEDICARE, OTHER ==
--- NOTE | 2019-02-26 10:35 | RADIOLOGY REPORT (SQ) ---
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 RADIONUCLIDE AND DOSE: 10.92 mCi F18 FDG The route of agent administration: Intravenous FASTING BLOOD SUGAR: 107 mg/dl CONTRAST TYPE AND DOSE: No CT contrast given. TECHNIQUE: Blood glucose level was verified. Above dose of FDG was injected intravenously. 2-D seg mented attenuation correction images were obtained from the base of the skull to the midthighs. Nonc ontrast CT images were obtained for attenuation correction and fusion with emission images. CT image s were performed without oral or intravenous contrast and are not sensitive for parenchymal lesions. A series of overlapping emission PET images were obtained. Images reviewed and manipulated at [facility] work station by the radiologist. Images stored on PACS. LIMITATIONS: None. FINDINGS: HEAD AND NECK: No areas of abnormal metabolic activity in the soft tissues of the head and neck. CHEST: No areas of abnormal metabolic activity in the chest. ABDOMEN AND PELVIS: The liver demonstrates heterogeneous non focal FDG uptake with an average SUV of 2.2. There is expected physiologic activity throughout the gastrointestinal and genitourinary tracts . No areas of abnormal metabolic activity are identified in the abdomen or pelvis. PROXIMAL LOWER EXTREMITIES: No areas of abnormal metabolic activity in the soft tissues of the lower extremities. BONES: No areas of abnormal metabolic activity in the imaged axial and appendicular skeleton ADDITIONAL CT FINDINGS: There is severe atherosclerotic calcification of the mitral annulus. The lef t ventricle is enlarged. The patient is status post bilateral axillary lymph node dissection. There are bilateral breast impl ants in place. The morphology of the liver is non cirrhotic. The layering hyperattenuation within the gallbladder l umen could represent a combination of sludge in cholelithiasis. The spleen is normal in size. There is no abnormality of the adrenal glands or pancreas. There is no hydronephrosis, nephrolithiasis, h ydroureter or ureterolithiasis. There is colonic diverticulosis without diverticulitis. The urinary bladder is distended. There is a pessary ring in place. There is a cystic lesion in the right adnexa that exerts mass effect on the adjacent structured and measures approximately 8.8 x 8.4 cm ; further evaluation of the lesion with ultrasound is recommended. There is a fat containing right inguinal hernia. OTHER: No other findings. IMPRESSION: 1. No metabolic evidence of metastatic disease. 2. 8.8 x 8.4 cm cystic right adnexal lesion - based on the age of the patient further evaluation wit h ultrasound is recommended. TECHNICAL DOCUMENTATION: JOB ID: [id number] [employer]- All Rights Reserved Reading location - IP/workstation name: [email or web address]
== END ==
LOC: RAD 07:43
PROVIDERS: ATTEND Internal Medicine
DX: C50.412 Malignant neoplasm of upper-outer quadrant of left female breast (principal)
CPT/HCPCS: 78815; A9552

== ENCOUNTER 2019-12-30 07:58 | Day surgery (SDC) | payer MEDICARE, OTHER ==
[2019-12-26 12:41] LABS: HEMATOCRIT 39.4 % (36.0-47.0); HEMOGLOBIN 13.3 g/dL (12.0-15.5); MEAN CORPUSCULAR HEMOGLOBIN 29.6 pg (27.0-33.4); MEAN CORPUSCULAR HGB CONC 33.8 g/dL (32.0-36.0); MEAN CORPUSCULAR VOLUME 88 fl (80-97); PLATELET COUNT 277 10^3/uL (150-450); RED BLOOD COUNT 4.49 10^6/uL (3.72-5.28); RED CELL DISTRIBUTION WIDTH 14.5 % (11.5-14.0); WHITE BLOOD COUNT 5.6 10^3/uL (4.0-10.5)
[2019-12-26 12:50] LABS: INTERNATIONAL RATION (INR) 1.02; PROTHROMBIN TIME 13.6 SEC (11.4-15.4)
[2019-12-26 12:51] LABS: PARTIAL THROMBOPLASTIN TIME 31.6 SEC (23.5-35.8)
[2019-12-26 13:16] LABS: ANION GAP 9 (5-19); BLOOD UREA NITROGEN 22 mg/dL (7-20); CALCIUM 10.2 mg/dL (8.4-10.2); CARBON DIOXIDE 30 mmol/L (22-30); CHLORIDE 100 mmol/L (98-107); GLUCOSE 124 mg/dL (75-110); POTASSIUM 4.9 mmol/L (3.6-5.0)
--- NOTE | 2019-12-27 00:46 | EKG REPORT ---
SEVERITY:- OTHERWISE NORMAL ECG - SINUS RHYTHM BORDERLINE LEFT AXIS DEVIATION : Confirmed by: Luz Marina Garcia MD 27-Dec-2019 00:45:33
[~2019-12-30 07:58] MED LIST changes: +CEFAZOLIN 1 GM/D5W RTU 1 GM/50 ML RTUPB IV PRN; -CEFAZOLIN SODIUM 1 GM in DEXTROSE 5%-WATER 50 ML IV SCH
[2019-12-30] MEDS ORDERED: CEFAZOLIN 1 GM/D5W RTU 1 GM/50 ML RTUPB IV ONE (07:59)
[2019-12-30] MEDS ORDERED: LIDOCAINE 1%/EPINEPHRINE INJ 20 ML VIAL ONE (08:39)
[2019-12-30] MEDS ORDERED: MIDAZOLAM 2 MG/2 ML INJ ONE (08:58)
[2019-12-30] MEDS ORDERED: PROPOFOL INJ 200 MG/20 ML VIAL IV ONE (08:58)
[2019-12-30] MEDS ORDERED: ONDANSETRON HCL INJ/PF 4 MG/2 ML SDV ONE (08:58)
[2019-12-30] MEDS ORDERED: FENTANYL CITRATE INJ/PF 100 MCG/2 ML AMPUL IV PRN ×2 (10:14)
[2019-12-30] MEDS ORDERED: DIPHENHYDRAMINE HCL 50 MG/ML VIAL IV PRN (10:14)
[2019-12-30] MEDS ORDERED: MEPERIDINE HCL/PF INJ 25 MG/1 ML DISP.SYRIN IV PRN (10:14)
[2019-12-30] MEDS ORDERED: PROMETHAZINE HCL INJ 25 MG/1 ML VIAL IV PRN (10:14)
--- NOTE | 2019-12-30 11:06 | Operative Report ---
Operative Report DATE OF SURGERY: 12/30/19 PREOPERATIVE DIAGNOSIS: Basal cell carcinoma of the right calf with positive de ep and lateral margins POSTOPERATIVE DIAGNOSIS: Basal cell carcinoma of the right scalp with clear margins after resection OPERATION: Excision of basal cell carcinoma from the right jowl with frozen section margin control and reconstruction with a boomerang sliding advancement flap reconstruction SURGEON: JAZMINE SEARS ANESTHESIA: LMAC TISSUE REMOVED OR ALTERED: Basal cell carcinoma COMPLICATIONS: None ESTIMATED BLOOD LOSS: Minimal PROCEDURE: Patient seen and was marked prior to being brought into the operating room. Patient was brought into the operating room and placed on the operating room table in a sloppy lateral position. Patient was then prepped with a Betadine scrub and Betadine solution and draped in a sterile and aseptic manner. The area was then marked. 12 O'clock was marked towards the nose 3 O'clock was marked towards the mandibular margin 6:00 was marked towards the angle of the mandible 9:00 was marked towards the ear The area was then anesthetized with 1% lidocaine with epinephrine and bicarbonate for its anesthetic and hemostatic effects. The area was then excised and marked at 12:00. The specimen was sent for frozen section. The results came back that the deep and lateral margins were free. We had considered a primary closure but this would go against the natural relaxed skin tension lines. A primary closure would be too tight and would have increased chance of dehiscence. This will leave more of a scar so we decided to use a boomerang sliding advancement flap reconstruction which would camouflage the scar better and take tension off of the closure so that would be less chances of complications. It was thought by doing this type of flap this would allow us to maintain the reconstruction within her natural relaxed skin tension lines. This would distort them the least amount. This will also allow us to gently have a curvilinear reconstruction around the mandible margin. This will allow us to curve with a curvature of the skin and bone. This flap will be the best option overall Then we went ahead and outlined the flap and anesthetized it. We then incised the flap and developed a flap maintaining the subdermal plexus. Then we undermined 360 to allow for plate like scarring and minimize trap door deformity. Throughout the case hemostasis was achieved with the bipolar. We then sutured the flap into its new position using 5-0 Vicryl for the subcutaneous and deep dermis. Skin was closed with a running subcuticular suture stitch using 4-0 PDS with knots being tied on the outside. And 4-0 PDS suture was used for support and placed in the central area of the incision. We then applied tincture benzoin and Steri-Strips followed by a light pressure dressing. Patient was then reversed from anesthesia and taken to the [facility] for recovery. The patient tolerated well. There were no complications. Lesion size was approximately 1.2 cm please see pathology for actual size. Portions of this note may be dictated using [employer] voice recognition software. Occasional variations and spelling and vocabulary could be possible and are unintentional. Additionally, there is a chance that some errors may not be caught or corrected. Please notify the author of any discrepancies noted or if any statements are unclear. Subjective: No complaints Objective: Vital signs stable afebrile No bleeding Dressing intact Assessment and plan: Doing well. Elevate the operative site. Resume medications. Take antibiotics for 1 day Follow-up Full instructions were given to the patient and family and they understand Portions of this note may be dictated using [employer] voice recognition software. Occasional variations and spelling and vocabulary could be possible and are unintentional. Additionally, there is a chance that some errors may not be caught or corrected. Please notify the offer of any discrepancies noted or if any statements are unclear.
--- NOTE | 2019-12-30 11:09 | Discharge Summary ---
Discharge Summary (SDC) - Discharge Final Diagnosis: Basal cell carcinoma of the right jowl Date of Surgery: 12/30/19 Condition: Good Forms: ASU Anesthesia D/C Instruction, Discharge POC-Surgical Service Treatment or Instructions: Leave the top dressing on for 2 days, then removed. Leave the steri-strip tapes on for 5 days, then removal. Then cleaning wound with peroxide and apply bacitracin 3 times per day. Antibiotics for 1 day, then discontinue. Elevate operative area to decrease swelling. Do not strain, or lift heavy objects. Call for excessive bleeding, increased temperature of 101, uncontrolled pain, or excessive nausea or vomiting. You may reach Dr. Sears through his office at [phone]. In the event of an emergency after hours, then contact Dr. Sears through [facility]. Return to the office for a postop check on . The time will be scheduled by the nursing staff of [facility] prior to discharge. Please give the patient a copy of their labs and EKG so they can bring this to their PMD. Thank you Portions of this note may be dictated using [employer] voice recognition software. Occasional variations and spelling and vocabulary could be possible and are unintentional. Additionally, there is a chance that some errors may not be caught or corrected. Please notify the offer of any discrepancies noted or if any statements are unclear. Referrals: JAZMINE SEARS MD [ACTIVE STAFF] - Discharge Diet: As Tolerated Discharge Activity: No Lifting/Push/Pulling Report the Following to Your Physician Immediately: Unusual Bleeding - Keep head elevated. Do not twist the neck. Take antibiotics today and tomorrow. If any medicine was stopped for the surgery please resume it tomorrow. Otherwise take your regular medication today. Take the top dressing off in 2 days. Take the Steri-Strips off in 5 days. Clean the wound with peroxide and then bacitracin twice a day. Follow-up on Sunday.
[2019-12-30 12:49] VITALS: BP 150/79
== END 2019-12-30 12:30 | disposition home or self-care (01) ==
LOC: OROUT 07:58
PROVIDERS: ATTEND Plastic Surgery
DX: C44.319 Basal cell carcinoma of skin of other parts of face (principal); Z03.818 Encounter for observation for suspected exposure to other biological agents ruled out; Z79.82 Long term (current) use of aspirin; Z79.899 Other long term (current) drug therapy; I10 Essential (primary) hypertension; E11.9 Type 2 diabetes mellitus without complications; Z85.3 Personal history of malignant neoplasm of breast; Z85.828 Personal history of other malignant neoplasm of skin; Z87.440 Personal history of urinary (tract) infections; Z79.01 Long term (current) use of anticoagulants
CPT/HCPCS: 93005; 36415; 82962; 85027; 85610; 85730; 80048; 88305 ×2; 88331 ×2; 93010; 14040; U0003; J2250; J0690; J3490; J2405; J2704; C9803; 300; 87635

== ENCOUNTER 2020-01-27 05:48 | Day surgery (SDC) | payer MEDICARE, OTHER ==
[~2020-01-27 05:48] MED LIST changes: +CEFAZOLIN 1 GM/D5W RTU 1 GM/50 ML RTUPB IV ONE; -LACTATED RINGERS 1000 ML IV PRN; -LIDOCAINE 0.5% INJ-PF (5 MG/ML) 50 ML SDV SUBCUT PRN
[2020-01-27] MEDS ORDERED: ONDANSETRON HCL INJ/PF 4 MG/2 ML SDV ONE (06:48)
[2020-01-27] MEDS ORDERED: LIDOCAINE 2% INJ-PF (20 MG/ML) 10 ML AMPUL ONE (06:48)
[2020-01-27] MEDS ORDERED: FENTANYL CITRATE INJ/PF 100 MCG/2 ML AMPUL ONE (06:48)
[2020-01-27] MEDS ORDERED: PROPOFOL INJ 200 MG/20 ML VIAL IV ONE (06:49)
[2020-01-27] MEDS ORDERED: MIDAZOLAM 2 MG/2 ML INJ ONE (07:07)
[2020-01-27] MEDS ORDERED: DEXMEDETOMIDINE INJ 80 MCG/20 ML VIAL IV ONE (07:07)
[2020-01-27] MEDS ORDERED: LIDOCAINE 1%/EPINEPHRINE INJ 20 ML VIAL ONE (07:16)
[2020-01-27] MEDS ORDERED: SODIUM BICARBONATE 4.2% INJ (2.5 MEQ/5 ML) VIAL ONE (07:16)
[2020-01-27] MEDS ORDERED: POVIDONE-IODINE 5% OPH PREP SOLN 30 ML ONE (07:16)
[2020-01-27] MEDS ORDERED: MEPERIDINE HCL/PF INJ 25 MG/1 ML DISP.SYRIN IV PRN (07:47)
[2020-01-27] MEDS ORDERED: FENTANYL CITRATE INJ/PF 100 MCG/2 ML AMPUL IV PRN ×3 (07:47)
[2020-01-27] MEDS ORDERED: PROMETHAZINE HCL INJ 25 MG/1 ML VIAL IV PRN ×2 (07:47)
[2020-01-27] MEDS ORDERED: MORPHINE SULFATE 10 MG/ML INJ IV PRN (07:47)
[2020-01-27] MEDS ORDERED: DIPHENHYDRAMINE HCL 50 MG/ML VIAL IV PRN (07:47)
[2020-01-27] MEDS ORDERED: OXYCODONE-ACETAMINOPHEN 5-325 MG TABLET PO PRN ×2 (07:47)
--- NOTE | 2020-01-27 09:11 | Operative Report ---
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 Patient was brought into the operating room and placed on the operating room table in a supine position. Patient was then prepped with a Betadine scrub and Betadine solution and draped in a sterile and aseptic manner. The area was then marked. 12 O'clock was marked towards the nose 3 O'clock was marked towards the lower eyelid 6:00 was marked towards the ear 9:00 was marked towards the chin The area was then anesthetized with 1% lidocaine with epinephrine and bicarbonate for its anesthetic and hemostatic effects. The area was then excised and marked at 12:00. The specimen was sent for frozen section. The results came back that the deep and lateral margins were free. We had considered a primary closure but this would go against the natural relaxed skin tension lines. A primary closure would be too tight and would have increased chance of dehiscence. This will leave more of a scar so we decided to use a nasolabial sliding advancement flap reconstruction which would camouflage the scar better and take tension off of the closure so that would be less chances of complications. Then we went ahead and outlined the flap and anesthetized it. It was felt that this was the best option for the patient which would allow us to use a facelift plane to develop the flap and bring it over to the nasolabial fold. This will give us the least amount of distortion of the area. Also we were able to change the direction of the resection so that it would put the least amount of tension on the lower eyelid. This flap will minimize any lower eyelid irregularities and give us the least amount of distortion of the nasolabial fold region. We then incised the flap and developed a flap maintaining the subdermal plexus. Then we undermined 360 to allow for plate like scarring and minimize trap door deformity. Throughout the case hemostasis was achieved with the bipolar. We then sutured the flap into its new position using 4-0 Vicryl for the subcutaneous and deep dermis. Skin was closed with a running subcuticular suture stitch using 4-0 PDS with knots being tied on the outside. And 4-0 PDS suture was used for support and placed in the central area of the incision. We then applied skin glue followed by a light pressure dressing. Patient was then reversed from anesthesia and taken to the [facility] for recovery. The patient tolerated well. There were no complications. Lesion size was approximately 2.1 cm please see pathology for actual size. Portions of this note may be dictated using [employer] voice recognition software. Occasional variations and spelling and vocabulary could be possible and are unintentional. Additionally, there is a chance that some errors may not be caught or corrected. Please notify the author of any discrepancies noted or if any statements are unclear. Subjective: No complaints Objective: Vital signs stable afebrile No bleeding Dressing intact Assessment and plan: Doing well. Elevate the operative site. Resume medications. Take antibiotics for 1 day Follow-up Full instructions were given to the patient and family and they understand Portions of this note may be dictated using [employer] voice recognition software. Occasional variations and spelling and vocabulary could be possible and are un intentional. Additionally, there is a chance that some errors may not be caught or corrected. Please notify the offer of any discrepancies noted or if any statements are unclear.
--- NOTE | 2020-01-27 09:13 | Discharge Summary ---
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 Clean the glue once a day with some peroxide. Antibiotics for 1 day, then discontinue. Elevate operative area to decrease swelling. Do not strain, or lift heavy objects. Call for excessive bleeding, increased temperature of 101, uncontrolled pain, or excessive nausea or vomiting. You may reach Dr. Sears through his office at [phone]. In the event of an emergency after hours, then contact Dr. Sears through [facility]. Return to the office for a postop check on . The time will be scheduled by the nursing staff of [facility] prior to discharge. Please give the patient a copy of their labs and EKG so they can bring this to their PMD. Thank you Portions of this note may be dictated using [employer] voice recognition software. Occasional variations and spelling and vocabulary could be possible and are unintentional. Additionally, there is a chance that some errors may not be caught or corrected. Please notify the offer of any discrepancies noted or if any statements are unclear. Referrals: JAZMINE SEARS MD [ACTIVE STAFF] - Discharge Diet: As Tolerated Discharge Activity: No Lifting/Push/Pulling Report the Following to Your Physician Immediately: Unusual Bleeding - Keep head elevated. No bending or straining. Take talk dressing off in 2 days. Leave the glue in place. Clean the glue once a day with peroxide. Take antibiotics today a nd tomorrow then stop them. Resume any medicines that you stopped for the surgery starting tomorrow. Take your regular medication that you did not stop for the surgery today. Follow-up on Sunday at the office.
[2020-01-27 10:57] VITALS: BP 151/94
[2020-01-27] MEDS ORDERED: PHENYLEPHRINE HCL INJ/PF 10 MG/1 ML SDV ONE (12:20)
[2020-01-27] MEDS ORDERED: GLYCOPYRROLATE 1 MG/5 ML VIAL ONE (12:20)
== END 2020-01-27 10:40 | disposition home or self-care (01) ==
LOC: OROUT 05:48
PROVIDERS: ATTEND Plastic Surgery
DX: L57.8 Other skin changes due to chronic exposure to nonionizing radiation (principal); Z85.828 Personal history of other malignant neoplasm of skin; Z03.818 Encounter for observation for suspected exposure to other biological agents ruled out; Z79.01 Long term (current) use of anticoagulants; E11.9 Type 2 diabetes mellitus without complications; M19.90 Unspecified osteoarthritis, unspecified site; Z90.13 Acquired absence of bilateral breasts and nipples; Z85.3 Personal history of malignant neoplasm of breast; Z79.899 Other long term (current) drug therapy
CPT/HCPCS: 82962; 88305 ×2; 88331 ×2; 00300; 14060; U0003; J0690; J3010; J3490 ×6; J2370; J2405; J2704; C9803; 300; 87635; J2250

== ENCOUNTER 2020-02-03 08:35 | Day surgery (SDC) | payer MEDICARE, OTHER ==
[~2020-02-03 08:35] MED LIST changes: -CEFAZOLIN 1 GM/D5W RTU 1 GM/50 ML RTUPB IV ONE; +FENTANYL CITRATE INJ/PF 100 MCG/2 ML AMPUL ONE; +MIDAZOLAM 2 MG/2 ML INJ ONE; +ONDANSETRON HCL INJ/PF 4 MG/2 ML SDV ONE; +PROPOFOL INJ 200 MG/20 ML VIAL IV ONE
[2020-02-03] MEDS ORDERED: CEFAZOLIN 1 GM/D5W RTU 1 GM/50 ML RTUPB IV ONE (08:38)
[2020-02-03] MEDS ORDERED: SODIUM BICARBONATE 8.4% INJ 50 MEQ/50 ML DISP.SYRIN ONE (09:56)
[2020-02-03] MEDS ORDERED: LIDOCAINE 1%/EPINEPHRINE INJ 20 ML VIAL ONE (09:56)
[2020-02-03] MEDS ORDERED: PROPOFOL INJ 200 MG/20 ML VIAL IV ONE (10:25)
--- NOTE | 2020-02-03 12:32 | Operative Report ---
Operative Report DATE OF SURGERY: 02/03/20 PREOPERATIVE DIAGNOSIS: Basal cell carcinoma of the right proximal forearm POSTOPERATIVE DIAGNOSIS: Same OPERATION: Excision of basal cell carcinoma from the right proximal forearm with frozen section margin control and reconstruction with a rotation flap SURGEON: JAZMINE SEARS ANESTHESIA: LMAC TISSUE REMOVED OR ALTERED: Basal cell carcinoma COMPLICATIONS: None ESTIMATED BLOOD LOSS: Minimal PROCEDURE: Patient seen and was marked prior to being brought into the operating room. Patient was brought into the operating room and placed on the operating room table in a supine position. Patient was then prepped with a Betadine scrub and Betadine solution and draped in a sterile and aseptic manner. The area was then marked. 12 O'clock was marked towards the antecubital fossa 3 O'clock was marked towards the radial side 6:00 was marked towards the wrist 9:00 was marked towards the ulnar side The area was then anesthetized with 1% lidocaine with epinephrine and bicarbonate for its anesthetic and hemostatic effects. The area was then excised and marked at 12:00. The specimen was sent for frozen section. The results came back that the deep and lateral margins were free. We had considered a primary closure but this would go against the natural relaxed skin tension lines. A primary closure would be too tight and would have increased chance of dehiscence. This will leave more of a scar so we decided to use a rotation flap re construction which would camouflage the scar better and take tension off of the closure so that would be less chances of complications. This flap would allow us to harvest where there is more skin to bring it into the area where there was a paucity of skin. The skin is so frail and delicate that any tension would cause dehiscence. With the rotation flap we will allow skin to come into the area for a tension- free closure. Then we went ahead and outlined the flap and anesthetized it. We then incised the flap and developed a flap maintaining the subdermal plexus. Once the flap was incised and raised we were able to get hemostasis. The flap appeared to have adequate vascularity to be rotated into the area defect. Then we undermined 360 to allow for plate like scarring and minimize trap door deformity. Throughout the case hemostasis was achieved with the bipolar. We then sutured the flap into its new position using 4-0 Vicryl for the subcutaneous and deep dermis. Skin was closed with a running subcuticular suture stitch using 4-0 PDS with knots being tied on the outside. And 4-0 PDS suture was used for support and placed in the central area of the incision. We then applied tincture benzoin and Steri-Strips followed by a light pressure dressing. Patient was then reversed from anesthesia and taken to the [facility] for recovery. The patient tolerated well. There were no complications. Lesion size was approximately 1.5 cm please see pathology for actual size. Portions of this note may be dictated using [employer] voice recognition software. Occasional variations and spelling and vocabulary could be possible and are unintentional. Additionally, there is a chance that some errors may not be caught or corrected. Please notify the author of any discrepancies noted or if any statements are unclear. Subjective: No complaints Objective: Vital signs stable afebrile No bleeding Dressing intact Assessment and plan: Doing well. Elevate the operative site. Resume medications. Take antibiotics for 1 day Follow-up Full instructions were given to the patient and family and they understand Portions of this note may be dictated using [employer] voice recognition software. Occasional variations and spelling and vocabulary could be possible and are unintentional. Additionally, there is a chance that some errors may not be caught or corrected. Please notify the offer of any discrepancies noted or if any statements are uncl ear.
--- NOTE | 2020-02-03 12:35 | Discharge Summary ---
Discharge Summary (SDC) - Discharge Final Diagnosis: Basal cell carcinoma of the right proximal forearm Date of Surgery: 02/03/20 Condition: Good Treatment or Instructions: Leave the top dressing on for 2 days, then removed. Leave the steri-strip tapes on for 5 days, then removal. Then cleaning wound with peroxide and apply bacitracin 3 times per day. Antibiotics for 1 day, then discontinue. Elevate operative area to decrease swelling. Do not strain, or lift heavy objects. Call for excessive bleeding, increased temperature of 101, uncontrolled pain, or excessive nausea or vomiting. You may reach Dr. Levi through his office at [phone]. In the event of an emergency after hours, then contact Dr. Levi through [facility]. Return to the office for a postop check on . The time will be scheduled by the nursing staff of [facility] prior to discharge. Please give the patient a copy of their labs and EKG so they can bring this to their PMD. Thank you Portions of this note may be dictated using [employer] voice recognition software. Occasional variations and spelling and vocabulary could be possible and are unintentional. Additionally, there is a chance that some errors may not be caught or corrected. Please notify the offer of any discrepancies noted or if any statements are unclear. Referrals: VILMA AVINA MD [Primary Care Provider] - Discharge Diet: As Tolerated Discharge Activity: No Lifting/Push/Pulling Report the Following to Your Physician Immediately: Unusual Bleeding - Keep head elevated. No bending or straining. No digging in the garden. Resume any medications stopped for surgery starting tomorrow. Take your regular medication that you did not stop for surgery starting back today. Take top dressing off in 2 days. Take Steri-Strips off in about 5 days.
[2020-02-03 15:13] VITALS: BP 159/87
== END 2020-02-03 14:30 | disposition home or self-care (01) ==
LOC: OROUT 08:35
PROVIDERS: ATTEND Plastic Surgery
DX: C44.612 Basal cell carcinoma of skin of right upper limb, including shoulder (principal); L57.0 Actinic keratosis; L57.8 Other skin changes due to chronic exposure to nonionizing radiation; I10 Essential (primary) hypertension; M19.90 Unspecified osteoarthritis, unspecified site; Z20.828 Contact with and (suspected) exposure to other viral communicable diseases; Z79.01 Long term (current) use of anticoagulants; Z79.899 Other long term (current) drug therapy; Z79.82 Long term (current) use of aspirin; Z85.828 Personal history of other malignant neoplasm of skin; Z85.3 Personal history of malignant neoplasm of breast; Z90.13 Acquired absence of bilateral breasts and nipples
CPT/HCPCS: 82962; 88305 ×2; 88331 ×2; 14020; U0003; J2250; J0690; J3490 ×2; J2405; J2704; C9803; 400; 87635; J3010